=== PATIENT | female | born 1950 | race Caucasian/White ===

== ENCOUNTER 2016-02-24 13:08 | Inpatient (IN) | payer OTHER ==
[2016-02-24 14:09] LABS: MANUAL DIFF NEEDED? NO
[2016-02-24 14:20] LABS: BASO% 0.3 % (0.0-0.8); EOS# 0.13 X1000 (0.0-0.7); EOS% 1.9 % (0.0-10.0); HEMATOCRIT 41.1 % (37.0-47.0); HEMOGLOBIN 14.8 g/dL (12.0-16.0); IMM GRAN# 0.02 X1000 (0.0-0.04); IMM GRAN% 0.3 % (0.0-0.5); LYMPH# 1.42 X1000 (1.2-3.4); LYMPH% 20.2 % (20.5-51.1); MCH 31.4 PG (27-31); MCV 87.3 FL (81-99); MONO# 0.62 X1000 (0.11-0.59); MONO% 8.8 % (1.7-9.3); MPV 8.7 FL (7.4-10.4); NEUT% 68.5 % (42.2-75.2); PLT 411 X1000 (130-400); RBC 4.71 XMIL (4.2-5.4)
[2016-02-24 15:03] LABS: AGAP 12; ALBUMIN 4.7 g/dL (3.5-5.0); ALKALINE PHOSPHATASE 92 U/L (32-104); BUN 8 mg/dL (8-22); CALCIUM 9.2 mg/dL (8.8-10.2); CHLORIDE 81 mmol/L (98-107); COSMO 231; GOT 21 U/L (10-30); GPT 17 U/L (10-36); POTASSIUM 3.6 mmol/L (3.5-5.1); SODIUM 115 mmol/L (136-145); TCO2 22 mmol/L (25-35); TOTAL BILIRUBIN 0.33 mg/dL (0.20-1.00); TOTAL PROTEIN 7.5 g/dL (6.3-8.3)
[2016-02-24 16:10] LABS: URINE CULTURE NEEDED? NO; URINE MICRO REVIEW NEEDED? NO; URINE SOURCE CLEAN CATCH
[2016-02-24 16:14] LABS: BILIRUBIN URINE NEGATIVE (NEGATIVE); BLOOD URINE NEGATIVE (NEGATIVE); COLOR YELLOW; GLUCOSE URINE NEGATIVE (NEGATIVE); LEUKOCYTES URINE NEGATIVE (NEGATIVE); NITRITE URINE NEGATIVE (NEGATIVE); PROTEIN URINE NEGATIVE (NEGATIVE); SP GRAVITY URINE 1.011; TURBIDITY URINE CLEAR (CLEAR); UR EPITHELIAL CELLS <10 /HPF (<10); URINE BACTERIA NEGATIVE /HPF; URINE RBC <10 /HPF (<10); URINE WBC <10 /HPF (<10); UROBILINOGEN URINE NORMAL (NORMAL)
--- NOTE | 2016-02-24 16:35 | PROVIDER DOCUMENTATION ---
HPI-Headache - General Chief Complaint: Headache Stated Complaint: FONTAINE X 1 WEEK Time Seen by Provider: 02/24/16 15:15 Source: patient Allergies/Adverse Reactions: Patient Allergies Allergy/AdvReac Type Severity Reaction Status Date / Time morphine Allergy Unknown Verified 02/24/16 16:02 Penicillins Allergy Unknown Verified 02/24/16 16:02 tetanus toxoid, adsorbed Allergy Unknown Verified 02/24/16 16:02 Home Medications: Clonazepam 1 mg PO PRN PRN 02/24/16 Cyclobenzaprine [Flexeril] 5 mg PO BID 02/24/16 Duloxetine [Cymbalta] 60 mg PO DAILY 02/24/16 Estradiol 1 mg PO DAILY 02/24/16 Lisinopril/Hydrochlorothiazide [Lisinopril-Hctz 20-25 mg Tab] 1 each PO DAILY Meloxicam 15 mg PO DAILY 02/24/16 Methocarbamol [Robaxin-750] 750 mg PO Q8H PRN PRN 02/24/16 Oxycodone HCl/Acetaminophen [Percocet 5-325 mg Tablet] 1 each PO TID PRN Ropinirole [Requip] 1 mg PO QHS 02/24/16 Sumatriptan Succinate [Imitrex] 100 mg PO BID PRN 02/24/16 Zolpidem [Ambien] 10 mg PO QHS 02/24/16 - History of Present Illness-Headache Nature of Presenting Problem: 65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 She also complains of headache and jusst a little nausea. She wass admitted to [facility] 2 years ago with hponatremiia possible due to HCTZ .. She is on a number of other drugs known to be associated with hyponatremia, has no history of cancer, head injury, etc. Headache Location: reports: global Quality of Pain: reports: sharp Severity: reports: moderate Onset/Duration: reports: other (greater than a week ago) Timing: reports: still present Headache Context: reports: nothing Headache History: reports: chronic headaches Any recent trauma/injury?: reports: none Headache severity at the maximum: moderate Preceding Symptoms: reports: none Modifying Factors: improves with: nothing Similar Symptoms Previously?: No Recently seen or treated by another doctor?: Yes Review of Systems - Adult - REVIEW OF SYSTEMS - ADULT Constitutional: reports: no symptoms reported Eyes: reports: no symptoms reported Ears, Nose, Mouth & Throat: reports: no symptoms reported Cardiovascular: reports: see HPI, poor circulation Respiratory: reports: chronic cough, dyspnea on exertion, shortness of breath Gastrointestinal: reports: no symptoms reported Genitourinary: reports: no symptoms reported Musculoskeletal: reports: no symptoms reported Integumentary: reports: no symptoms reported, see HPI Neurological: reports: see HPI Psychiatric: reports: depression Endocrine: reports: increased thirst Hematologic/Lymphatic: reports: no symptoms reported Allergic/Immunologic: reports: no symptoms reported Past History - Adult - PAST MEDICAL HISTORY-ADULT Major Childhood Illnesses: reports: denies history Cardiovascular: reports: cardiac disease, CAD, HTN, hyperlipidemia Respiratory: reports: bronchitis, COPD Gastrointestinal: reports: denies history Genitourinary: reports: denies history Musculoskeletal: reports: denies history Neurological: reports: denies history Psychiatric: reports: depression - FAMILY HISTORY Family History: reviewed, not pertinent - SOCIAL HISTORY Smoking: greater than 1 pack/day Provider spent 3-5 mins advising pt. on dangers of tobacco.: Discussed manners to quit use, and f/u contacts for add'l counseling. 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 Exam: normal hearing, normal speech Coordination/Gait: normal finger to nose Motor/Sensory: no motor deficit, no sensory deficit Neurologic: grossly normal - Glascow Coma Scale Total Glascow Score: 15 Progress - PLAN OF CARE/RESULTS Progress/Plan/Lab Results: Laboratory Tests 02/24/16 02/24/16 02/24/16 14:02 14:02 16:03 WBC 7.02 RBC 4.71 Hgb 14.8 Hct 41.1 MCV 87.3 MCH 31.4 H MCHC 36.0 RDW Std Deviation 12.6 Plt Count 411 H MPV 8.7 Immature Gran % (Auto) 0.3 Neut % (Auto) 68.5 Lymph % (Auto) 20.2 L Hayes % (Auto) 8.8 Eos % (Auto) 1.9 Baso % (Auto) 0.3 Immature Gran # (Auto) 0.02 Neut # (Auto) 4.81 Lymph # (Auto) 1.42 Hayes # (Auto) 0.62 H Eos # (Auto) 0.13 Baso # (Auto) 0.02 Sodium 115 L* Potassium 3.6 Chloride 81 L Carbon Dioxide 22 L Anion Gap 12 BUN 8 Creatinine 0.6 Estimated GFR/1.73 m2 > 60 BUN/Creatinine Ratio 13 Glucose 94 Calculated Osmolality 231 Calcium 9.2 Total Bilirubin 0.33 AST 21 ALT 17 Alkaline Phosphatase 92 Total Protein 7.5 Albumin 4.7 Globulin 2.8 Albumin/Globulin Ratio 1.7 Urine Source CLEAN CATCH Urine Color YELLOW Urine Turbidity CLEAR Urine pH 7.0 Ur Specific [place] 1.011 Urine Protein NEGATIVE Ur Glucose (Stick) NEGATIVE Ur Ketones (Stick) NEGATIVE Urine Blood NEGATIVE Urine Nitrite NEGATIVE Urine Bilirubin NEGATIVE Urobilinogen Dipstick NORMAL Urine Leukocytes NEGATIVE Urine WBC (Auto) <10 Urine RBC (Auto) <10 U Epithel Cells (Auto) <10 Urine Bacteria (Auto) NEGATIVE Ur Random Sodium 02/24/16 16:03 WBC RBC Hgb Hct MCV MCH MCHC RDW Std Deviation Plt Count MPV Immature Gran % (Auto) Neut % (Auto) Lymph % (Auto) Hayes % (Auto) Eos % (Auto) Baso % (Auto) Immature Gran # (Auto) Neut # (Auto) Lymph # (Auto) Hayes # (Auto) Eos # (Auto) Baso # (Auto) Sodium Potassium Chloride Carbon Dioxide Anion Gap BUN Creatinine Estimated GFR/1.73 m2 BUN/Creatinine Ratio Glucose Calculated Osmolality Calcium Total Bilirubin AST ALT Alkaline Phosphatase Total Protein Albumin Globulin Albumin/Globulin Ratio Urine Source Urine Color Urine Turbidity Urine pH Ur Specific [place] Urine Protein Ur Glucose (Stick) Ur Ketones (Stick) Urine Blood Urine Nitrite Urine Bilirubin Urobilinogen Dipstick Urine Leukocytes Urine WBC (Auto) Urine RBC (Auto) U Epithel Cells (Auto) Urine Bacteria (Auto) Ur Random Sodium 75 Orders Category Date Time Status CBC WITH DIFF [HEME] Stat Lab 02/24/16 14:02 Completed CMP [COMPREHENSIVE METABOLIC PANEL] [CHEM] Stat Lab 02/24/16 14:02 Completed UA NIMS W/REFLEX CULT [URINALYSIS] Stat Lab 02/24/16 16:03 Completed UR SODIUM [URCHEM] Stat Lab 02/24/16 16:03 Completed Vital Signs Temp Pulse Resp BP Pulse Ox 02/24/16 13:24 98.5 F 72 20 138/73 97 morphine Allergy (Verified 02/24/16 16:02) Unknown Penicillins Allergy (Verified 02/24/16 16:02) Unknown tetanus toxoid, adsorbed Allergy (Verified 02/24/16 16:02) Unknown Clonazepam 1 mg PO PRN PRN 02/24/16 Cyclobenzaprine [Flexeril] 5 mg PO BID 02/24/16 Duloxetine [Cymbalta] 60 mg PO DAILY 02/24/16 Estradiol 1 mg PO DAILY 02/24/16 Lisinopril/Hydrochlorothiazide [Lisinopril-Hctz 20-25 mg Tab] 1 each PO DAILY Meloxicam 15 mg PO DAILY 02/24/16 Methocarbamol [Robaxin-750] 750 mg PO Q8H PRN PRN 02/24/16 Oxycodone HCl/Acetaminophen [Percocet 5-325 mg Tablet] 1 each PO TID PRN Ropinirole [Requip] 1 mg PO QHS 02/24/16 Sumatriptan Succinate [Imitrex] 100 mg PO BID PRN 02/24/16 Zolpidem [Ambien] 10 mg PO QHS 02/24/16 Laboratory 02/24/16 02/24/16 02/24/16 16:03 16:03 14:02 WBC RBC Hgb Hct MCV MCH MCHC RDW Std Deviation Plt Count MPV Immature Gran % (Auto) Neut % (Auto) Lymph % (Auto) Hayes % (Auto) Eos % (Auto) Baso % (Auto) Immature Gran # (Auto) Neut # (Auto) Lymph # (Auto) Hayes # (Auto) Eos # (Auto) Baso # (Auto) Sodium 115 L* Potassium 3.6 Chloride 81 L Carbon Dioxide 22 L Anion Gap 12 BUN 8 Creatinine 0.6 Estimated GFR/1.73 m2 > 60 BUN/Creatinine Ratio 13 Glucose 94 Calculated Osmolality 231 Calcium 9.2 Total Bilirubin 0.33 AST 21 ALT 17 Alkaline Phosphatase 92 Total Protein 7.5 Albumin 4.7 Globulin 2.8 Albumin/Globulin Ratio 1.7 Urine Source CLEAN CATCH Urine Color YELLOW Urine Turbidity CLEAR Urine pH 7.0 Ur Specific [place] 1.011 Urine Protein NEGATIVE Ur Glucose (Stick) NEGATIVE Ur Ketones (Stick) NEGATIVE Urine Blood NEGATIVE Urine Nitrite NEGATIVE Urine Bilirubin NEGATIVE Urobilinogen Dipstick NORMAL Urine Leukocytes NEGATIVE Urine WBC (Auto) <10 Urine RBC (Auto) <10 U Epithel Cells (Auto) <10 Urine Bacteria (Auto) NEGATIVE Ur Random Sodium 75 02/24/16 14:02 WBC 7.02 RBC 4.71 Hgb 14.8 Hct 41.1 MCV 87.3 MCH 31.4 H MCHC 36.0 RDW Std Deviation 12.6 Plt Count 411 H MPV 8.7 Immature Gran % (Auto) 0.3 Neut % (Auto) 68.5 Lymph % (Auto) 20.2 L Hayes % (Auto) 8.8 Eos % (Auto) 1.9 Baso % (Auto) 0.3 Immature Gran # (Auto) 0.02 Neut # (Auto) 4.81 Lymph # (Auto) 1.42 Hayes # (Auto) 0.62 H Eos # (Auto) 0.13 Baso # (Auto) 0.02 Sodium Potassium Chloride Carbon Dioxide Anion Gap BUN Creatinine Estimated GFR/1.73 m2 BUN/Creatinine Ratio Glucose Calculated Osmolality Calcium Total Bilirubin AST ALT Alkaline Phosphatase Total Protein Albumin Globulin Albumin/Globulin Ratio Urine Source Urine Color Urine Turbidity Urine pH Ur Specific [place] Urine Protein Ur Glucose (Stick) Ur Ketones (Stick) Urine Blood Urine Nitrite Urine Bilirubin Urobilinogen Dipstick Urine Leukocytes Urine WBC (Auto) Urine RBC (Auto) U Epithel Cells (Auto) Urine Bacteria (Auto) Ur Random Sodium Departure - Departure Time of Disposition Order: 17:20 DIAGNOSIS: Hyponatremia Disposition: ADMITTED INPATIENT 09 Certified Medical Emergency: Emergent Condition: Fair
[2016-02-24] MEDS ORDERED: NORCO-7.5 PO ONE (17:25)
[2016-02-24] MEDS ORDERED: 1/2 NS 1,000 ML IV ONE (17:51)
--- NOTE | 2016-02-24 20:24 | HISTORY AND PHYSICAL ---
PRIMARY CARE PROVIDER: Roscoe Shelton D.O. CHIEF COMPLAINT: Headache. HISTORY OF PRESENT ILLNESS: This is a 65-year-old, female with past medical history of hypertension, dyslipidemia and back surgery who basically was sent to the emergency department because of abnormal labs, in her case hyponatremia. Patient reports that during the last week the patient was experiencing some headache that was getting worse in the last 2 days. She was feeling nauseated but she did not vomit. The headache that she described was 7-8/10 in intensity, holocranial headache. She denies any sensation of dizziness. She reports that she suspected it was a headache. Patient is a retired nurse. Patient reports that she was diagnosed with low sodium in [facility] 2 times, the first time 2 years ago, the last one 6 months ago where the sodium was 114. She stayed overnight and was discharged the next day. Now she having a headache here and the sodium was found to be 115 so she is being admitted for evaluation and treatment. PAST MEDICAL HISTORY: 1. Hypertension. 2. Hyperlipidemia. 3. Osteoarthritis. 4. Spinal stenosis. PAST SURGICAL HISTORY: 1. Back surgery with fusion of L2-L3 and L4-L5 a few months ago. 2. Total hysterectomy. SOCIAL HISTORY: She smokes between 1/2 a pack to 1 pack per day for the last 4 years. She denies drinking alcohol or using any drugs. ALLERGIES: She is allergic to morphine and penicillin. REVIEW OF SYSTEMS: All systems were reviewed. She denies any weight loss or loss of appetite. PHYSICAL EXAMINATION: VITAL SIGNS: Temperature 98.5 degrees, heart rate 72, respiratory rate 20, blood pressure 138/73, O2 saturation 97% on room air. GENERAL EXAMINATION: This is a 65-year-old, female, lying in bed, in no acute distress. HEENT: Head is normocephalic, atraumatic. Anicteric sclerae. Pale conjunctivae. Mucous membranes moist. NECK: Supple. No JVD noted. No carotid bruits. No lymphadenopathy. No thyromegaly. CARDIOVASCULAR: S1, S2 heard. No murmurs, gallops, or rubs. Regular rate and rhythm. RESPIRATORY: Clear bilaterally to auscultation. No work of breathing or using accessory muscles. ABDOMEN: Soft, nontender to palpation. Bowel sounds present. No organomegaly. EXTREMITIES: No clubbing, cyanosis, or edema. Peripheral pulses present in both legs. NEUROLOGICAL EXAMINATION: Patient alert and oriented x3. Able to move 4 extremities. Cranial nerves 2-12 grossly normal. LABORATORY DATA: White cell count 7.02, hemoglobin 14.8, hematocrit 41.3, platelets 411,000. Sodium 115, potassium 3.6, chloride 81, bicarbonate 22, BUN 8, creatinine 0.6, serum osmolality 47. ASSESSMENT: 1. Severe hyponatremia. 2. Hypertension. 3. Hyperlipidemia. 4. Osteoarthritis. PLAN: At this time the plan for this patient is to do some studies like urine osmolality and serum osmolality. We are going to start this patient on normal saline per hour. Because of suspicion for possible SIADH and the relationship with smoking, we are going to do a CT of the thorax with contrast to see if there is any lung cancer. We are going to check a CT of the head with contrast to look for any possible reasons for this headache. Regarding her order medications that can cause hyponatremia, in this case Cymbalta and hydrochlorothiazide, we have stopped the hydrochlorothiazide but the Cymbalta, because it is a chronic medication, we prefer to keep her on. Further recommendations to follow according to the clinical situation of the patient.
[2016-02-24] MEDS ORDERED: AMBIEN PO SCH (21:53)
[2016-02-24] MEDS ORDERED: LOVENOX SUBQ SCH (21:53)
[2016-02-24] MEDS ORDERED: REQUIP PO SCH (21:53)
[2016-02-24] MEDS ORDERED: KLONOPIN PO PRN (21:53)
--- NOTE | 2016-02-24 21:56 | Diag Imaging Result Document ---
PROCEDURE NAME: CHEST-2 VIEWS - 02/24/2016 PA AND LATERAL RADIOGRAPH OF THE CHEST: COMPARISON: 07/12/2011. FINDINGS: The lungs are grossly clear. There is no discrete pleural fluid collection or evidence of pneumothorax. The cardiomediastinal silhouette and upper airway are grossly unremarkable. IMPRESSION: No evidence of acute chest pathology.
[2016-02-24] MEDS: DEMEROL IV PRN (21:57)
[2016-02-24] MEDS: ZOFRAN IV PRN (21:57)
[2016-02-24] MEDS: FLEXERIL PO SCH (23:47)
[2016-02-24] MEDS: PERCOCET-5 PO PRN (23:52)
[2016-02-25 00:06] LABS: AGAP 17; BUN 6 mg/dL (8-22); CALCIUM 9.2 mg/dL (8.8-10.2); CHLORIDE 86 mmol/L (98-107); COSMO 250; POTASSIUM 2.8 mmol/L (3.5-5.1); SODIUM 125 mmol/L (136-145); TCO2 22 mmol/L (25-35)
[2016-02-25] MEDS ORDERED: VALIUM IV ONE (01:25)
[2016-02-25] MEDS ORDERED: VALIUM ONE (01:45)
[2016-02-25] MEDS: DEMEROL IV PRN ×2 (03:45→09:20)
[2016-02-25] MEDS: ZOFRAN IV PRN ×2 (04:58→09:20)
[2016-02-25 06:10] LABS: BASO% 0.3 % (0.0-0.8); EOS# 0.14 X1000 (0.0-0.7); EOS% 2.1 % (0.0-10.0); HEMOGLOBIN 13.9 g/dL (12.0-16.0); IMM GRAN# 0.04 X1000 (0.0-0.04); IMM GRAN% 0.6 % (0.0-0.5); LYMPH# 2.23 X1000 (1.2-3.4); LYMPH% 33.9 % (20.5-51.1); MANUAL DIFF NEEDED? NO; MCH 30.8 PG (27-31); MCHC 34.8 g/dL (33-37); MCV 88.7 FL (81-99); MONO# 0.66 X1000 (0.11-0.59); MPV 8.7 FL (7.4-10.4); NEUT% 53.1 % (42.2-75.2); PLT 377 X1000 (130-400); RBC 4.51 XMIL (4.2-5.4)
--- NOTE | 2016-02-25 06:17 | Diag Imaging Result Document ---
PROCEDURE NAME: HEAD W/O CONTRAST - 02/24/2016 CT HEAD WITHOUT CONTRAST: COMPARISON: 07/12/2011. FINDINGS: There is no discrete intracranial mass, mass effect, or intracranial hemorrhage. There is no evidence of hydrocephalus. There is no evidence of acute infarct given the limited sensitivity of CT versus MRI. The surrounding soft tissues and bony structures are essentially unremarkable. IMPRESSION: No evidence of acute intracranial pathology.
--- NOTE | 2016-02-25 06:18 | Diag Imaging Result Document ---
PROCEDURE NAME: CT THORAX W/O CONTRAST - 02/24/2016 CT THORAX WITHOUT CONTRAST: COMPARISON: None available. FINDINGS: There are few small apical blebs bilaterally indicating very mild emphysema. There is trace subsegmental atelectasis at the left lung base and minimal atelectasis versus scarring in the right middle lobe at the base. The lungs are clear otherwise. There are no pleural fluid collections. There are few calcified mediastinal and left hilar lymph nodes indicating prior granulomatous disease. There is no evidence of significant lymphadenopathy, otherwise. There is no cardiomegaly. IMPRESSION: 1. Very minimal emphysematous change. 2. Other incidental/nonacute findings detailed above but no definite acute pathology.
[2016-02-25 06:53] LABS: AGAP 15; BUN 7 mg/dL (8-22); CALCIUM 9.5 mg/dL (8.8-10.2); CHLORIDE 89 mmol/L (98-107); COSMO 258; POTASSIUM 3.1 mmol/L (3.5-5.1); SODIUM 129 mmol/L (136-145); TCO2 25 mmol/L (25-35)
[2016-02-25] MEDS ORDERED: PROTONIX PO SCH (07:00)
[2016-02-25 07:19] VITALS: BP 107/55
[2016-02-25] MEDS: PERCOCET-5 PO PRN (07:55)
[2016-02-25] MEDS ORDERED: ESTRACE PO SCH (09:00)
[2016-02-25] MEDS ORDERED: CYMBALTA PO SCH (09:00)
[2016-02-25] MEDS: POTASSIUM CHLORIDE 60 MEQ in NS 500 ML IV ONE ×2 (09:21→09:37)
[2016-02-25] MEDS: FLEXERIL PO SCH (09:22)
[2016-02-25] MEDS ORDERED: KLOR-CON PO ONE (09:44)
--- NOTE | 2016-02-25 10:40 | DISCHARGE SUMMARY ---
ADMISSION DATE: 02/24/2016 DISCHARGE DATE: DISCHARGE DIAGNOSES: 1. Severe hyponatremia, improved. 2. Hypertension, under control. 3. Hyperlipidemia. 4. Osteoarthritis. 5. Chronic pain syndrome. PROCEDURES: 1. CT of the head with contrast showed no evidence of acute intracranial pathology. 2. Chest CT showed very minimal emphysematous changes, but no definite acute pathology. HOSPITAL COURSE: This is a 65-year-old female with past medical history of hypertension, dyslipidemia, back surgery, who basically was sent to the emergency department by her primary care physician, because she was found to have a low sodium of 125 at the office. Here, she was found to have a sodium 115. She was complaining of headache that was 7 to 8/10 in intensity. The patient was admitted to the hospital for further evaluation and treatment, for suspicion of [employer] and/or lung cancer that can cause SIADH. we ordered a CT of the head and also CT of the thorax, with results as above. The patient has been given 1/2 normal saline and the sodium has corrected today to 129. At this point, IV fluids has been stopped. The patient's headaches have gone, as well as any sensation of dizziness all. Patient is now feeling fine and she requests to go home today. A nephrology consultation has been requested but is not done yet. Patient does not want to wait for the consultations. At this time, we are going to discharge this patient home and she can be seen by Dr. Capone from Nephrology as on outpatient. Regarding the reason for this hyponatremia. I think that this is most likely related to medication, in this case to hydrochlorothiazide. Also, Cymbalta is definitely playing a role in the hyponatremia as well. In this case, I preferred to change to stop lisinopril/hydrochlorothiazide and going to provide a prescription for lisinopril 20 and also amlodipine 5 mg. Regarding Cymbalta, I advised the patient to go to his primary care physician and change the medication slowly to different one like Pristiq or Effexor. The patient is being discharged in stable condition. DISCHARGE PHYSICAL EXAMINATION: Vital Signs: Temperature 98.4 degrees, heart rate 71, respiratory rate 18, blood pressure 107/55. O2 saturation 94% on room air. General Appearance: This is a 65-year-old female, lying in bed, in no acute distress. HEENT: Head is normocephalic, atraumatic. Anicteric sclerae and pale conjunctivae. Mucous membranes moist. Neck: Supple. No jugular venous distention noted. No carotid bruits. No lymphadenopathy. No thyromegaly. Cardiovascular Examination: S1, S2 heard. No murmurs, gallops, or rubs. Regular rate and rhythm. Respiratory Examination: Clear bilaterally to auscultation. No work of breathing or using accessory muscles. Abdomen: Soft and nontender to palpation. Bowel sounds present. No organomegaly. Extremities: No clubbing, cyanosis. There are peripheral pulses present in both legs. Neurological Examination: The patient is alert and oriented x3. Able to move 4 extremities. Cranial nerves 2-12 grossly normal. DISCHARGE DISPOSITION: To home, to self-care. DISCHARGE MEDICATIONS: 1. Amlodipine one tablet p.o. at bedtime. 2. Lisinopril 20 mg one tablet p.o. in a.m. 3. Meloxicam 50 mg p.o. daily p.r.n. 4. Clonazepam 1 mg p.o. as needed for anxiety. 5. Flexeril 5 mg one tablet p.o. b.i.d. 6. Duloxetine 60 mg p.o. daily. 7. Estradiol 1 mg p.o. daily. 8. Robaxin 750 as needed for pain. 9. Percocet 5 one tablet p.o. 2 times per day. 10. Requip 1 mg, one tablet p.o. at bedtime. 11. Zolpidem 10 mg, one tablet p.o. at bedtime.
== END 2016-02-25 12:09 | disposition home or self-care (01) | DRG 641 ==
LOC: ED 13:08 → 4N 18:53
PROVIDERS: ATTEND Internal Medicine
DX: E87.1 Hypo-osmolality and hyponatremia (principal); I10 Essential (primary) hypertension; E78.5 Hyperlipidemia, unspecified; M19.90 Unspecified osteoarthritis, unspecified site; F17.210 Nicotine dependence, cigarettes, uncomplicated; F32.9 Major depressive disorder, single episode, unspecified; G89.4 Chronic pain syndrome; T50.2X5A Adverse effect of carbonic-anhydrase inhibitors, benzothiadiazides and other diuretics, initial encounter; T43.215A Adverse effect of selective serotonin and norepinephrine reuptake inhibitors, initial encounter; Z98.1 Arthrodesis status; Z79.899 Other long term (current) drug therapy; Z79.1 Long term (current) use of non-steroidal anti-inflammatories (NSAID); Z79.890 Hormone replacement therapy
CPT/HCPCS: 70450; 71020; 71250; 80048; 80053; 81001; 83930; 83935; 84300; 85025; J1650; J2175; J2405; J3360; J3480; J7040

== ENCOUNTER 2018-09-17 10:35 | Observation (INO) ==
[2018-09-17] MEDS ORDERED: ATIVAN PO ONE (10:58)
--- NOTE | 2018-09-17 11:18 | EKG Report ---
Test Performed on : 09/17/2018 11:14:41 AM Test Reason : sob, anxiety Blood Pressure : / mmHG Vent. Rate : 064 BPM Atrial Rate : 064 BPM P-R Int : 174 ms QRS Dur : 088 ms QT Int : 458 ms P-R-T Axes : 023 040 054 degrees QTc Int : 472 ms Normal sinus rhythm. Normal ECG When compared with ECG of 12-JUL-2011 17:31, NM interval has decreased Borderline criteria for Anteroseptal infarct are no longer present Unconfirmed Result
--- NOTE | 2018-09-17 11:28 | Diag Imaging Result Doc PS360 ---
EXAM: CHEST-1 VIEW HISTORY: sob TECHNIQUE: Chest single view COMPARISON: 02/24/2016 FINDINGS: The lungs are well expanded. The heart is not enlarged. The vessels are not distended. There are no infiltrates. No effusion identified. IMPRESSION: Negative exam. Electronically signed by Lonnie Houser 09/17/2018 11:26 AM
[2018-09-17 11:49] LABS: BASO# 0.05 X1000 (0.0-0.2); BASO% 0.6 % (0.0-0.8); EOS# 0.21 X1000 (0.0-0.7); EOS% 2.4 % (0.0-10.0); HEMATOCRIT 41.3 % (37.0-47.0); HEMOGLOBIN 14.7 g/dL (12.0-16.0); LYMPH# 1.81 X1000 (1.2-3.4); LYMPH% 20.5 % (20.5-51.1); MCH 31.3 PG (27-31); MCHC 35.6 g/dL (33-37); MCV 87.9 FL (81-99); MONO# 0.61 X1000 (0.11-0.59); MONO% 6.9 % (1.7-9.3); NEUT# 6.14 X1000 (1.4-6.5); NEUT% 69.6 % (42.2-75.2); PLT 353 X1000 (130-400); RDW 12.9 % (11.5-14.5); WBC 8.82 X1000 (4.8-10.8)
[2018-09-17 12:22] LABS: UR AMPHETAMINES QUAL NONE DETECTED (NONE DETECT); UR BARBITUATES QUAL NONE DETECTED (NONE DETECT); UR BENZODIAZEPIN QUAL NONE DETECTED (NONE DETECT); UR CANNABINOIDS QUAL NONE DETECTED (NONE DETECT); UR COCAINE QUAL NONE DETECTED (NONE DETECT); UR METHADONE QUAL NONE DETECTED (NONE DETECT); UR OPIATES QUAL NONE DETECTED (NONE DETECT); UR OXYCODONE QUAL PRESUMPTIVE POSITIVE (NONE DETECT); UR PCP QUAL NONE DETECTED (NONE DETECT)
[2018-09-17 12:24] LABS: AGAP 13; ALB/GLOB RATIO 1.6; ALBUMIN 4.2 g/dL (3.5-5.0); ALKALINE PHOSPHATASE 82 U/L (32-104); BUN 6 mg/dL (8-22); CALCIUM 9.7 mg/dL (8.8-10.2); CHLORIDE 90 mmol/L (98-107); COSMO 267; CREATININE 0.7 mg/dL (0.5-0.9); ESTIMATED GFR > 60; GLUCOSE 119 mg/dL (70-104); GOT 20 U/L (10-30); GPT 18 U/L (10-36); SODIUM 134 mmol/L (136-145); TCO2 31 mmol/L (25-35); TOTAL BILIRUBIN 0.53 mg/dL (0.20-1.00); TOTAL PROTEIN 6.8 g/dL (6.3-8.3)
[2018-09-17 12:28] LABS: POTASSIUM 2.4 mmol/L (3.5-5.1)
[2018-09-17] MEDS ORDERED: ZOFRAN IV ONE (13:07)
[2018-09-17] MEDS ORDERED: POTASSIUM CHLORIDE 40 MEQ in NS 1,000 ML IV ONE (13:07)
--- NOTE | 2018-09-17 13:11 | PROVIDER DOCUMENTATION ---
This chart was entered by Mone Perez Scribe, acting as scribe for Kunal Duvall MD. HPI-General Adult - General Chief Complaint: Anxiety Stated Complaint: SOB, anxiety Time Seen by Provider: 09/17/18 10:51 Source: patient Allergies/Adverse Reactions: Patient Allergies Allergy/AdvReac Type Severity Reaction Status Date / Time morphine Allergy Unknown Verified 02/24/16 16:02 Penicillins Allergy Unknown Verified 02/24/16 16:02 tetanus toxoid, adsorbed Allergy Unknown Verified 02/24/16 16:02 Home Medications: Home Medication List Medication Instructions Recorded Confirmed Last Taken Type Clonazepam 1 mg PO PRN PRN 02/24/16 02/24/16 02/23/15 History Cyclobenzaprine [Flexeril] 5 mg PO BID 02/24/16 02/24/16 Unknown History Duloxetine [Cymbalta] 60 mg PO DAILY 02/24/16 02/24/16 Unknown History Estradiol 1 mg PO DAILY 02/24/16 02/24/16 03/04/15 History Methocarbamol [Robaxin-750] 750 mg PO Q8H PRN PRN 02/24/16 02/24/16 02/23/15 History Oxycodone HCl/Acetaminophen 1 each PO TID PRN 02/24/16 02/24/16 Unknown History [Percocet 5-325 mg Tablet] Ropinirole [Requip] 1 mg PO QHS 02/24/16 02/24/16 02/22/15 History Zolpidem [Ambien] 10 mg PO QHS 02/24/16 02/24/16 02/22/15 History Amlodipine [Norvasc] 5 mg PO QHS #90 tablet 02/25/16 Unknown Rx LISINOpril [Prinivil] 20 mg PO DAILY #90 tablet 02/25/16 Unknown Rx Meloxicam 15 mg PO DAILY PRN PRN #0 02/25/16 02/24/16 02/22/15 Rx - History of Present Illness -Gen Adult Nature of Presenting Problems: Pt is 68/F presenting to ED via EMS after having what she thinks in a panic attack at home, she was having some accompanied SOB and it scared her. Pt has hx of anxiety disorder and was taking clonapine, but decided a bit over a week ago that she was going to stop taking them, and threw them away in the trash. Pt sts that she has not been feeling well for the last week or so. She recently had a fall and has been on medications for that as well. hx of RLS, HTN, anxiety and depression. Pt later admitted to nausea and vomiting multiple times recently. Location of Pain/Injury: reports: generalized Pain Radiation: reports: no radiation Quality of Pain: reports: none Severity: reports: mild Onset/Duration: reports: this morning Timing: reports: improving Context/Activities at Onset: reports: none Modifying Factors: improves with: nothing Associated Symptoms: denies: diaphoresis, dizziness, fever/chills, nausea, vomiting Similar Symptoms Previously?: Yes Recently seen or treated by another doctor?: No Review of Systems - Adult - REVIEW OF SYSTEMS - ADULT Constitutional: reports: no symptoms reported. denies: chills, fever Eyes: reports: no symptoms reported Ears, Nose, Mouth & Throat: reports: no symptoms reported Cardiovascular: reports: no symptoms reported Respiratory: reports: no symptoms reported Gastrointestinal: reports: no symptoms reported. denies: abdominal pain, nausea, vomiting Genitourinary: reports: no symptoms reported Musculoskeletal: reports: no symptoms reported Integumentary: reports: no symptoms reported Neurological: reports: no symptoms reported. denies: dizziness/vertigo, headache/migraines Psychiatric: reports: anxiety, depression Endocrine: reports: no symptoms reported Hematologic/Lymphatic: reports: no symptoms reported Allergic/Immunologic: reports: no symptoms reported All Other Systems: Reviewed and Negative Past History - Adult - PAST MEDICAL HISTORY-ADULT Review of Records: reports: Old Records Reviewed, Nursing Assessment Review, Medications Reviewed, Social history reviewed & non-contributory. Major Childhood Illnesses: reports: denies history Cardiovascular: reports: cardiac disease, CAD, HTN, hyperlipidemia Respiratory: reports: bronchitis, COPD Gastrointestinal: reports: denies history Obstetrical/Gynecological: reports: denies history Genitourinary: reports: denies history Musculoskeletal: reports: denies history Neurological: reports: denies history Psychiatric: reports: depression Endocrine/Immune: reports: denies history Other Conditions: reports: denies history - PRIOR SURGERIES/PROCEDURES Surgical/Procedure History: reports: reviewed, not pertinent, hysterectomy, BTL - IMMUNIZATION STATUS Childhood Immunizations: See Nurse Assessment Flu Vaccine: See Nurse Assessment - FAMILY HISTORY Family History: reviewed, not pertinent - SOCIAL HISTORY Smoking: cigarettes, less than 1 pack/day Provider spent 3-5 mins advising pt. on dangers of tobacco.: Discussed manners to quit use, and f/u contacts for add'l counseling. Alcohol Use Frequency: never Living Situation: family Physical Exam-General - PHYSICAL EXAM-ADULT Initial Vital Signs Reviewed: Yes - CONSTITUTIONAL General Appearance: appears well, alert, no apparent distress - EYES Eyes: PERRL/EOMI, pink conjunctivae - HEAD, EARS, NOSE, MOUTH & THROAT HENMT: normocephalic/atraumatic, moist mucous membranes, normal ENT inspection, TMs normal, pharynx normal - NECK Neck: non-tender, full range of motion, supple - RESPIRATORY Respiratory: lungs clear - CARDIOVASCULAR Cardiovascular: regular rate, rhythm - GASTROINTESTINAL (ABDOMEN) Abdominal Exam: non tender, soft - MUSCULOSKELETAL Back Exam: normal inspection Extremity: normal range of motion, non-tender, normal gait, normal inspection - SKIN Integumentary: normal color, warm/dry - NEUROLOGIC Neurologic: grossly normal - PSYCHIATRIC Psych/Mental Status: normal mood/affect, normal thought content, normal thought process, oriented x 3 Progress - PLAN OF CARE/RESULTS Progress/Plan/Lab Results: Vital Signs - 8 hr 09/17/18 10:43 Temperature 98.6 F Pulse Rate 74 Respiratory Rate 19 Blood Pressure 138/90 O2 Sat by Pulse Oximetry 96 Result Diagrams: 09/17/18 11:25 09/17/18 11:25 - EKG 1 Time of EKG reading by physician:: 11:14 EKG Read and Signed by:: Kunal Duvall EKG Interpretation (*Must complete 3 of following elements*): Normal (normal sinus rhythm, normal ECG) Rate: 64 Rhythm: sinus [place]: normal QRS: normal NC Interval: normal - CONSULTS/PCP/HOSPITALIST Notification #1 *Consult/PCP/Hospitalist*: Simran for Dr Faulkner Time Discussed: 13:11 Consult Disposition: Will see in ED, Admit Departure - Departure Date of Disposition Decision: 09/17/18 Time of Disposition Decision: 13:11 DIAGNOSIS: Hypokalemia, Vomiting Disposition: ADMITTED INPATIENT 09 Certified Medical Emergency: Emergent Condition: Fair Referrals and Follow-Ups: Roscoe Shelton DO [Primary Care Provider] - - Critical Care Note This patient required my direct & personal management of CC.: No Attestation - Physician/ JASON Attestation Patient care was provided by Advanced Practice Provider:: No The physician spent face to face time with patient:: Yes Advanced Practice Provider documentation review:: Supervising physician onsite and consulted in the evaluation and care of this patient. The physician did have a face to face encounter with the patient. This chart was documented by the indicated scribe, (Mone Perez, Magaly) and accurately reflects the services I performed and decisions made by me, Kunal Duvall MD, as attested by the provider's signature.
[2018-09-17] MEDS ORDERED: TYLENOL PO PRN ×2 (13:48→15:31)
[2018-09-17] MEDS ORDERED: ZOFRAN IV PRN (13:48)
--- NOTE | 2018-09-17 14:59 | HISTORY AND PHYSICAL ---
PRIMARY CARE PHYSICIAN: Dr. Shelton. CHIEF COMPLAINT: Nausea and vomiting over the past several days that has progressively worsened with weakness and fatigue. She states she stopped taking her medications approximately a week ago, and stopped taking her Klonopin about 2 weeks ago when she "thinks she may have thrown her prescription in the garbage". HISTORY OF PRESENTING ILLNESS: This is a 68-year-old female who presents to [facility] with complaints of nausea and vomiting over the past several days. She has been feeling weak and fatigued, and also having some diarrhea. She arrived via EMS stating that she thought she was having a panic attack at home along with some shortness of breath and got scared. She states that a couple of weeks ago she got her Klonopin refilled, but thinks that she may have "thrown it in the garbage" because she could not find it, so she has had no Klonopin for the past 2 weeks. She also states that about a week ago she stopped taking all of her medications, and has not been feeling well. Her workup in the emergency room showed a potassium of 2.4. Her urine drug screen was presumptive positive for oxycodone. She does go to a pain clinic to get her prescriptions for that. Her chest x-ray was negative, but she will be admitted for further evaluation and treatment. PAST MEDICAL HISTORY: Coronary artery disease, hypertension, hyperlipidemia, COPD, depression, and anxiety. PAST SURGICAL HISTORY: Hysterectomy, bilateral tubal ligation, back and neck surgery. FAMILY HISTORY: Reviewed and noncontributory. SOCIAL HISTORY: She currently lives with family. Smokes a pack of cigarettes a day. Drinks 4 of the [employer] beers daily, but has not drank over the past couple of days due to her nausea, vomiting, and diarrhea. Denied any illicit drug use. ALLERGIES: To morphine, penicillin, tetanus toxoid HOME MEDICATIONS: A current list will need to be obtained, reconciled, reviewed, and restarted as appropriate. We will place an order for nursing to update and confirm home medications. LABORATORY DATA: White blood cell count of 8.82, hemoglobin 14.7, hematocrit 41.3, and platelets 353,000. Sodium 134, potassium 2.4, chloride 90, CO2 31, BUN of 6, creatinine 0.7 and glucose 119. 0Troponin less than 0.010. Urine drug screen was presumptive positive for oxycodone. Chest x-ray was negative exam. EKG with normal sinus rhythm at 64. REVIEW OF SYSTEMS: She denied any fever, chills, blurred vision, dizziness, chest pain, coughing, or shortness of breath. She has felt weakness and fatigue. She has had nausea, vomiting, and diarrhea, but no abdominal pain. No constipation and no burning or hurting with urination. PHYSICAL EXAMINATION: VITAL SIGNS: On arrival, she had a temperature of 98.6 degrees, pulse 74, respirations 19, blood pressure 138/90 and saturating 96% on room air. GENERAL: This is a 68-year-old female who is lying in the bed and answers questions appropriately. HEENT: Normocephalic and atraumatic. Normal ENT inspection. Oropharynx and nares are clear. EYES: Pupils are equal, round, and reactive to light and accommodation. Extraocular movements are intact. NECK: Normal inspection. Normal range of motion. LUNGS: Clear to auscultation bilaterally with equal lung expansion and chest wall movement. HEART: Regular rate and rhythm. No murmurs, rubs, or gallops. ABDOMEN: Soft, nontender, and nondistended. Bowel sounds are present x4 quadrants. MUSCULOSKELETAL: She has 5/5 strength x4 extremities. NEUROLOGICAL: The cranial nerves 2-12 appear grossly intact. ASSESSMENT: 1. Nausea, vomiting, and diarrhea. 2. Likely benzodiazepine withdrawal. 3. Hypokalemia. 4. Tobacco abuse. 5. Ethanol abuse. PLAN: She will be admitted to the medical unit at [facility] and placed on telemetry. Clear liquid diet. Normal saline with 40 mEq of potassium at 125 mL an hour, Zofran 4 mg IV q.4 hours p.r.n., Tylenol 650 mg p.o. q.6 hours p.r.n. She received Ativan 0.5 mg p.o. x1 in the emergency room. We will update and confirm her home medications. Place on SCD's for DVT prophylaxis, and recheck a CBC and BMP in the morning. Further orders after seen by attending. Dictated by PATRICK Woo for Jose Faulkner MD cc: DO Simran Villarreal CRNP Siddharth Patel, MD [facility]
[2018-09-17] MEDS ORDERED: POTASSIUM CHLORIDE 20 MEQ/SWI 20 MEQ/100 ML IVPB IV ONE (15:15)
[2018-09-17] MEDS ORDERED: CATAPRES PO PRN (15:30)
[2018-09-17] MEDS ORDERED: NS 500 ML ONE (16:13)
[2018-09-17] MEDS ORDERED: ATIVAN PO PRN (16:41)
--- NOTE | 2018-09-17 17:10 | Diag Imaging Result Doc PS360 ---
EXAM: ABDOMEN FLAT/UPRIGHT INDICATION: Evaluate for fecal impaction/ileus TECHNIQUE: 2 views COMPARISON: None. FINDINGS: There is retained contrast media in the ascending colon from a previous study. There is a relatively small amount of stool throughout the colon, however. There is patchy nonspecific small bowel gas with only mild distention that is nonspecific. There is no evidence of large volume free abdominal gas. There is no evidence of organomegaly. IMPRESSION: Nonspecific patchy small bowel gas as described. Electronically signed by Roverto Li 09/17/2018 5:08 PM
[2018-09-17] MEDS: KLOR-CON PO SCH ×2 (17:15→23:09)
--- NOTE | 2018-09-17 19:40 | HISTORY AND PHYSICAL ---
ADDENDUM: I agree with most components of history, physical, assessment and plan. In brief, Ms. Villela is 68 years old lady with past medical history of essential hypertension, hyperlipidemia, COPD, anxiety, chronic pain due to arthritis and frequent hyponatremia, who came in with chief complaint of 5 to 6 vomiting episodes with panic attack that started today morning. The patient had likely viral gastroenteritis 2 weeks ago following which he had developed hyponatremia and had emergency room visit 6 days prior, requiring intravenous fluids, and she was sent back to home; however, she continues to have poor p.o. intake and constipation. Today morning when she went to her bathroom she suddenly started having 5 to 6 nonbloody yellowish looking vomiting and after that she went into a panic attack and she called her family members who brought her to the emergency room. Apparently, patient had suddenly stopped taking her clonazepam and duloxetine for about 2 weeks now since she did not feel good on those medications. In the emergency room, she was hemodynamically stable, and she was found to have significant hypokalemia with potassium of 2.4 so the hospitalist team was consulted for further management. SUBJECTIVE: Currently, patient denies any more nausea and vomiting episodes since she has been in the hospital. She states she has been taking meloxicam every day for her right knee arthritis. She denies known gallbladder history. She denies noticing any blood in the stool. She never had EGD colonoscopy before. VITALS: Temperature 98.3 degrees, pulse 75, respiratory rate 16, blood pressure 147/80, saturating 98% room air. PHYSICAL EXAMINATION: GENERAL: Does not appear in acute distress. Oral cavity is moist. RESPIRATORY: Bilateral air entry equal. No wheeze, rhonchi or crackles. CARDIOVASCULAR: S1, S2 normal. No murmur, rub, or gallop. ABDOMEN: Soft. Mildly tender in epigastric region. No otherwise tenderness. Active bowel sounds. EXTREMITIES: No lower extremity edema. LABORATORY DATA: Normal CBC. She does have a potassium of 2.4, hyponatremia, hypochloremia, hypokalemia, normal kidney function, positive urine oxycodone. The patient's family is currently at bedside. Abdominal x-ray is pending. ECG had normal sinus rhythm. ASSESSMENT: 1. Likely acute gastritis in the setting of nonsteroidal antiinflammatory drug use. 2. Hypokalemia secondary to vomiting. 3. Constipation. 4. History of anxiety with current panic attack episode. 5. Sudden stoppage of benzodiazepine use. PLAN: Replete potassium with IV as well as oral formulation. Follow up with repeat potassium. Continue patient on clear liquid diet. Follow up frequent BMP. We will also follow up magnesium level and follow up abdominal x-ray. Keep patient inside the hospital for potassium repletion for under observation. Plan of care discussed with the patient and multiple family members. All of their questions have been answered. cc: Jose Faulkner MD
[2018-09-17] MEDS ORDERED: REQUIP PO SCH (21:00)
[2018-09-17] MEDS ORDERED: NORVASC PO SCH (21:00)
[2018-09-17] MEDS ORDERED: KLONOPIN PO SCH (21:00)
[2018-09-17] MEDS: CYMBALTA PO SCH (23:08)
[2018-09-17] MEDS: PERCOCET-5 PO PRN (23:09)
[2018-09-17] MEDS: NEURONTIN PO SCH (23:09)
[2018-09-17 23:45] LABS: URINE SOURCE CLEAN CATCH
[2018-09-17 23:46] LABS: BILIRUBIN URINE NEGATIVE (NEGATIVE); BLOOD URINE NEGATIVE (NEGATIVE); COLOR YELLOW; GLUCOSE URINE NEGATIVE (NEGATIVE); KETONE URINE NEGATIVE (NEGATIVE); LEUKOCYTES URINE TRACE (NEGATIVE); NITRITE URINE NEGATIVE (NEGATIVE); PROTEIN URINE NEGATIVE (NEGATIVE); SP GRAVITY URINE 1.006; TURBIDITY URINE CLEAR (CLEAR); UROBILINOGEN URINE NORMAL (NORMAL)
[2018-09-17 23:47] LABS: UR EPITHELIAL CELLS <10 /HPF (<10); URINE BACTERIA NEGATIVE /HPF; URINE RBC <10 /HPF (<10); URINE WBC <10 /HPF (<10)
[2018-09-18] MEDS: KLOR-CON PO SCH (03:00)
[2018-09-18 06:24] LABS: BASO# 0.03 X1000 (0.0-0.2); BASO% 0.4 % (0.0-0.8); HEMATOCRIT 38.4 % (37.0-47.0); HEMOGLOBIN 13.4 g/dL (12.0-16.0); LYMPH# 2.58 X1000 (1.2-3.4); LYMPH% 36.5 % (20.5-51.1); MCH 31.5 PG (27-31); MCHC 34.9 g/dL (33-37); MCV 90.1 FL (81-99); MONO# 0.45 X1000 (0.11-0.59); MONO% 6.4 % (1.7-9.3); MPV 8.9 FL (7.4-10.4); PLT 281 X1000 (130-400); RBC 4.26 XMIL (4.2-5.4); RDW 12.9 % (11.5-14.5); WBC 7.06 X1000 (4.8-10.8)
[2018-09-18 06:47] LABS: AGAP 12; BUN 5 mg/dL (8-22); CALCIUM 9.5 mg/dL (8.8-10.2); CHLORIDE 97 mmol/L (98-107); COSMO 271; CREATININE 0.7 mg/dL (0.5-0.9); ESTIMATED GFR > 60; GLUCOSE 93 mg/dL (70-104); SODIUM 137 mmol/L (136-145); TCO2 28 mmol/L (25-35)
[2018-09-18 07:09] LABS: EOS 2 % (1-10); LYMPHS 34 % (21-51); MONO 6 % (1-9); SEGS 58 % (42-75)
[2018-09-18 07:42] VITALS: BP 136/75
[2018-09-18] MEDS ORDERED: KLOR-CON PO SCH (08:15)
[2018-09-18] MEDS ORDERED: MAGNESIUM SULFATE 2 GM/S.W.I. 2 GM/50 ML IVPB IV SCH (08:30)
[2018-09-18] MEDS ORDERED: MAG-OX PO SCH (09:00)
[2018-09-18] MEDS: NEURONTIN PO SCH (09:21)
[2018-09-18] MEDS: CYMBALTA PO SCH (09:21)
[2018-09-18] MEDS: PERCOCET-5 PO PRN (09:30)
--- NOTE | 2018-09-19 08:43 | DISCHARGE SUMMARY ---
ADMISSION DATE: 09/17/2018 DISCHARGE DATE: 09/18/2018 DISCHARGE DISPOSITION: Home. DISCHARGE CONDITION: Hemodynamically stable. She does not have any more vomiting. She denies any tingling or numbness. She wants to be discharged home. DISCHARGE DIAGNOSES: 1. Vomiting likely in the setting of NSAID induced acute gastritis. 2. Hypokalemia. 3. Hyponatremia. 4. Hypomagnesemia. 5. Hypochloremia. 6. Panic attacks. 7. Sudden stoppage of benzodiazepine with likely withdrawal. OTHER DIAGNOSES: 1. History of anxiety. 2. History of depression. 3. History of hyponatremia, related to hydrochlorothiazide use. 4. History of essential hypertension. DISCHARGE MEDICATIONS: BMP and magnesium slip have been provided to her. We will get a repeat potassium and magnesium in 5 days. 1. Ropinirole for restless legs syndrome 3 mg at nighttime. 2. Clonidine 0.3 mg daily as needed for systolic blood pressure more than 160 or diastolic more than 100. 3. Clonazepam 1 mg b.i.d. 4. Duloxetine 60 mg b.i.d. 5. Gabapentin 100 mg b.i.d. 6. Percocet 5 mg 1 tablet t.i.d. as needed. 7. Amlodipine 5 mg at nighttime. 8. Potassium 40 mEq daily. 3 tablets of 40 have been prescribed. 9. Magnesium 800 mg b.i.d. 8 tablets have been provided. DISCHARGE VITAL SIGNS: At the time of discharge, temperature 98.5 degrees, pulse 81, respiratory rate 18, blood pressure 136/75, and saturating 95% on room air. DISCHARGE PHYSICAL EXAMINATION: General: Does not appear in any acute distress. HEENT: Oral cavity is moist. Lungs: Air entry bilaterally equal. No wheeze, rhonchi, or crackles. Cardiovascular: S1, S2 normal. No murmur, rub, or gallop. Abdomen: Soft and nontender. No epigastric tenderness. No lower extremity edema. She appears anxious but not in any distress. SIGNIFICANT LABORATORY AT TIME OF DISCHARGE: Hemoglobin 13.4, platelet 281,000, sodium 137, potassium 3, chloride 97, and magnesium is 1.3. After these labs, she has received 2 g of intravenous magnesium and 80 mEq of potassium. Her urine toxicology was positive for oxycodone. No new microbiological data. SIGNIFICANT IMAGING DURING HOSPITAL ADMISSION: Chest x-ray had negative exam. Abdominal x-ray had mild constipation and some gas. HOSPITAL COURSE SUMMARY: Ms. Villela is 68 year old lady with past medical history of anxiety, who has been on clonazepam and duloxetine for anxiety and chronic pain. She came in with chief complaints of episode of 5 to 6 vomiting and panic attacks. In the ER, she was found to be hypokalemic with potassium of 2.3, so the hospitalist team was consulted for further management. Apparently, patient has had drowsiness on clonazepam, and it was affecting her quality of life, so she had stopped taking both clonazepam and duloxetine since about 2 weeks ago. She was doing fair after that. She also had an episode of gastroenteritis 2 weeks ago. On the day of presentation early in the morning time, she suddenly started having vomiting. She states she vomited about 4 to 5 times. She also states that at home she used to take meloxicam so there was a suspicion of meloxicam induced gastritis as well, and it was thought that sudden clonazepam stopping was also inducing her panic attack. She was admitted and was given intravenous fluids, intravenous and oral potassium, intravenous magnesium, and was restarted on her home clonazepam as well as duloxetine. On the next day, her potassium started looking better and she did not have any more vomiting, and was feeling symptomatically better. She was provided a prescription of electrolytes and lab slip to get repeat electrolytes done outpatient. She was also advised to discuss with the regular doctor about slowly tapering of anxiety medication if it was affecting her quality of life. TIME SPENT: More than 30 minutes were spent in discharging this patient. Plan of care discussed with the patient and her daughter at bedside before discharge and detailed discharge instructions were given. cc: Jose Faulkner MD
== END 2018-09-18 11:47 | disposition home or self-care (01) ==
LOC: SUPCPDRO → ED 10:35 → 4N 10:35
PROVIDERS: ATTEND Internal Medicine
CPT/HCPCS: 71010; 71045; 74019; 74020; 80048; 80053; 80101; 80301; 80307; 80324; 80345; 80346; 80353; 80358; 80361; 80365; 81001; 83735; 83992; 84132; 84484; 85025; 93005; A9270; G0431; G0434; G0479; G0480; J2405; J3475; J3480; J7030; J7040